=== PATIENT | male | born 1965 | race Caucasian/White ===

== ENCOUNTER 2019-02-06 12:34 | Emergency (ER) | payer BC ==
[~2019-02-06] VITALS: Ht 200.7 cm; Wt 122.9 kg
[2019-02-06 12:42] VITALS: Ht 200.7 cm; Wt 122.9 kg
[2019-02-06 13:09] LABS: BASOPHIL % 0.7 % (0-2); PLATELET COUNT 213 x10^3mcL (130-400); RED CELL DISTRIBUTION WIDTH 13.1 % (11.5-14.5)
[2019-02-06 13:15] LABS: CARBON DIOXIDE 28.2 mmol/L (21-32); CHLORIDE SERUM 106 mmol/L (98-107); CREATININE SERUM 1.3 mg/dL (0.7-1.3); GFR1 > 60 mL/min; GLUCOSE SERUM 112 mg/dL (74-106); POTASSIUM SERUM 4.5 mmol/L (3.5-5.1); SODIUM SERUM 142 mmol/L (136-145)
[2019-02-06 13:20] LABS: ALBUMIN 3.5 g/dL (3.4-5.0); ALKALINE PHOSPHATASE 88 U/L (46-116); ALT/SGPT 36 U/L (16-63); AST/SGOT 17 U/L (15-37); BILIRUBIN TOTAL 0.32 mg/dL (0.20-1.00); TOTAL PROTEIN, SERUM 7.5 g/dL (6.4-8.2)
[2019-02-06 19:40] VITALS: BP 129/77
== END 2019-02-06 20:00 | disposition home or self-care (01) ==
LOC: ED 12:34
DX: J40 Bronchitis, not specified as acute or chronic (principal)
CPT/HCPCS: 36415; Q9967

== ENCOUNTER 2020-01-14 12:23 | Inpatient (IN) | payer BC ==
[~2020-01-14] VITALS: Ht 203.2 cm; Wt 132.0 kg
[2020-01-14 13:31] LABS: BASOPHIL % 0.5 % (0-2); PLATELET COUNT 210 x10^3mcL (130-400); RED CELL DISTRIBUTION WIDTH 13.8 % (11.5-14.5)
[2020-01-14 13:37] LABS: ALBUMIN 3.7 g/dL (3.4-5.0); ALKALINE PHOSPHATASE 84 U/L (46-116); ALT/SGPT 63 U/L (16-63); AST/SGOT 47 U/L (15-37); BILIRUBIN TOTAL 0.8 mg/dL (0.20-1.00); CALCIUM 8.7 mg/dL (8.5-10.1); CARBON DIOXIDE 21.3 mmol/L (21-32); CHLORIDE SERUM 91 mmol/L (98-107); CHOLESTEROL 177 mg/dL (<200); CREATININE SERUM 1.3 mg/dL (0.7-1.3); GFR1 > 60 mL/min; GLUCOSE SERUM 134 mg/dL (74-106); HDL CHOLESTEROL 45 mg/dL (40-60); LIPASE 112 IU/L (73-393); MAGNESIUM 1.5 mg/dL (1.8-2.4); SODIUM SERUM 125 mmol/L (136-145); T4(THYROXINE) 6.8 ug/dL (4.7-13.3); TOTAL PROTEIN, SERUM 7.5 g/dL (6.4-8.2)
[2020-01-14 13:47] LABS: POTASSIUM SERUM 2.6 mmol/L (3.5-5.1)
[2020-01-14 14:42] LABS: UA SPECIFIC GRAVITY <=1.005 (1.005-1.035); microscopic required? YES; urine erythrocyte TRACE (NEGATIVE)
[2020-01-14 14:56] LABS: AMPHETAMINE QUAL UR POSITIVE (See below)
[2020-01-14 17:02] LABS: C REACTIVE PROTEIN 1.9 mg/dL (<=0.9)
[2020-01-14 18:54] LABS: CHOLESTEROL/HDL RATIO 3.9
[2020-01-14 18:59] VITALS: BP 167/99
[2020-01-14 20:30] VITALS: BP 156/83
[2020-01-15 05:00] VITALS: BP 147/80
[2020-01-15 07:25] LABS: CALCIUM 7.8 mg/dL (8.5-10.1); CARBON DIOXIDE 25.2 mmol/L (21-32); CHLORIDE SERUM 97 mmol/L (98-107); CREATININE SERUM 1.1 mg/dL (0.7-1.3); GFR1 > 60 mL/min; GLUCOSE SERUM 144 mg/dL (74-106); POTASSIUM SERUM 3.9 mmol/L (3.5-5.1); SODIUM SERUM 130 mmol/L (136-145)
[2020-01-15 07:27] LABS: BASOPHIL % 0.3 % (0-2); PLATELET COUNT 186 x10^3mcL (130-400); RED CELL DISTRIBUTION WIDTH 13.9 % (11.5-14.5)
[2020-01-15 08:09] VITALS: BP 151/79
[2020-01-15] MEDS ORDERED: OMEPRAZOLE MAGN20 M1 PO (11:31)
[2020-01-15 12:34] VITALS: BP 150/87
[2020-01-15 16:23] VITALS: BP 160/81
[2020-01-15 17:59] VITALS: Ht 203.2 cm; Wt 132.0 kg
[2020-01-15 20:54] VITALS: BP 146/82
[2020-01-16 05:48] VITALS: BP 141/79
[2020-01-16 07:27] LABS: CALCIUM 8.6 mg/dL (8.5-10.1); CARBON DIOXIDE 23.5 mmol/L (21-32); CHLORIDE SERUM 100 mmol/L (98-107); CREATININE SERUM 1.1 mg/dL (0.7-1.3); GFR1 > 60 mL/min; GLUCOSE SERUM 108 mg/dL (74-106); POTASSIUM SERUM 3.7 mmol/L (3.5-5.1); SODIUM SERUM 133 mmol/L (136-145)
[2020-01-16 08:03] VITALS: BP 151/81
[2020-01-16 08:52] VITALS: BP 154/82
[2020-01-16 09:10] LABS: BASOPHIL % 0.5 % (0-2); PLATELET COUNT 186 x10^3mcL (130-400)
[2020-01-16 11:50] VITALS: BP 146/87
[2020-01-16 16:24] VITALS: BP 141/86
[2020-01-16 17:06] VITALS: BP 141/86
== END 2020-01-16 18:54 | disposition home or self-care (01) | DRG 280 ==
LOC: ED 12:23 → DU 15:51
PROVIDERS: Emergency Medicine; ADMIT Internal Medicine; ATTEND Internal Medicine
DX: I21.A1 Myocardial infarction type 2 (principal); G93.41 Metabolic encephalopathy; E87.1 Hypo-osmolality and hyponatremia; E66.9 Obesity, unspecified; I25.10 Atherosclerotic heart disease of native coronary artery without angina pectoris; F41.9 Anxiety disorder, unspecified; E87.6 Hypokalemia; F10.10 Alcohol abuse, uncomplicated; Z20.828 Contact with and (suspected) exposure to other viral communicable diseases; Z68.34 Body mass index [BMI] 34.0-34.9, adult; Z79.899 Other long term (current) drug therapy
CPT/HCPCS: 36600; 83880; 85378; 87804; G0378; G0480; J0456; J0696; J2060; J3475; J3480; J3490; J7030; J7050; Q0092; U0003